=== PATIENT | male | born 1955 | race Caucasian/White ===

== ENCOUNTER 2021-05-20 09:49 | Outpatient (REF) | payer OTHER, SELFPAY ==
[2021-05-20 10:43] LABS: MANUAL DIFF FLAG NO
[2021-05-20 10:47] LABS: Basophils Percent Auto 0.7 % (0-2); Eosinophils Absolute Auto 0.2 X10*3/uL (0.0-0.4); Eosinophils Percent Auto 4.6 % (0-4); Hematocrit 43.7 % (42-52); Hemoglobin 14.7 g/dl (14.0-18.0); Imm Gran Abs Auto 0.01 X10*3/uL (0.00-0.03); Imm Gran Pct Auto 0.2 % (0.0-0.4); Lymphocytes Absolute Auto 1.4 X10*3/uL (1.2-4.9); Lymphocytes Percent Auto 32.9 % (20-40); Mean Corpuscular HGB Conc 33.6 g/dl (31.0-36.0); Mean Corpuscular Volume 95.2 fL (80-98); Mean Platelet Volume 9.9 fL (9.4-12.4); Monocytes Absolute Auto 0.4 X10*3/uL (0.1-1.2); Monocytes Percent Auto 8.5 % (2-11); Neutrophils Absolute Auto 2.2 X10*3/uL (2.0-8.3); Neutrophils Percent Auto 53.1 % (45-73); Platelet Count 225 X10*3/uL (160-400); Red Blood Count 4.59 X10*6/uL (4.60-5.80); Red Cell Distribution Width 12.1 % (11.0-16.0); White Blood Count 4.1 X10*3/uL (4.8-10.8)
[2021-05-20 11:08] LABS: Alanine Aminotransferase 21 U/L (0-40); Albumin Level 4.5 g/dL (3.5-5.0); Alkaline Phosphatase 75 U/L (39-117); Anion Gap 12 (12-20); Aspartate Amino Transferase 26 U/L (5-37); Bilirubin Total 0.6 mg/dL (0.0-1.0); Blood Urea Nitrogen 18 mg/dL (9-16); Calcium 9.5 mg/dL (8.4-10.2); Carbon Dioxide 28 mmol/L (22-29); Chloride 104 mmol/L (96-108); Cholesterol 199 mg/dL; Estimated Glomerular Filt Rate 55; Glucose Fasting 99 mg/dL (60-99); HDL Cholesterol 46 mg/dL; LDL Cholesterol Calculated 128 mg/dl; Potassium 4.8 mmol/L (3.3-5.1); Sodium 139 mmol/L (135-145); Total Protein 7.6 g/dL (6.5-8.0); Triglycerides 127 mg/dL
[2021-05-20 11:30] LABS: Prostate Specific Antigen 0.36 ng/mL (<0.05-4.0)
== END 2021-05-20 09:50 | disposition home or self-care (01) ==
LOC: HO.LAB 09:49
PROVIDERS: PCP Internal Medicine; Visit Provider Internal Medicine
DX: Z00.00 Encounter for general adult medical examination without abnormal findings (principal); Z12.5 Encounter for screening for malignant neoplasm of prostate; N40.0 Benign prostatic hyperplasia without lower urinary tract symptoms; R21 Rash and other nonspecific skin eruption; R50.9 Fever, unspecified
CPT/HCPCS: 36415; 80053; 80061; 84153; 85025

== ENCOUNTER → 2022-05-30 10:06 | Outpatient (BNVA) | payer MEDICARE, SELFPAY | PROVIDERS: PCP Internal Medicine; Visit Provider Urology | DX: N52.9 Male erectile dysfunction, unspecified (principal) | CPT/HCPCS: 99202 ==

== ENCOUNTER 2024-02-06 10:43 | Outpatient (REF) | payer MEDICARE, SELFPAY ==
[2024-02-06 11:01] LABS: MANUAL DIFF FLAG NO
[2024-02-06 11:16] LABS: Basophils Percent Auto 0.7 % (0-2); Eosinophils Absolute Auto 0.1 X10*3/uL (0.0-0.4); Hemoglobin 14.7 g/dl (14.0-18.0); Imm Gran Abs Auto 0.01 X10*3/uL (0.00-0.03); Imm Gran Pct Auto 0.2 % (0.0-0.4); Lymphocytes Absolute Auto 1.4 X10*3/uL (1.2-4.9); Lymphocytes Percent Auto 32.6 % (20-40); Mean Corpuscular Hemoglobin 33.2 pg (27.0-33.0); Mean Corpuscular Volume 94.8 fL (80.0-98.0); Mean Platelet Volume 9.2 fL (9.4-12.4); Monocytes Absolute Auto 0.4 X10*3/uL (0.1-1.2); Monocytes Percent Auto 9.9 % (2-11); Neutrophils Absolute Auto 2.3 x10*3/uL (2.0-8.3); Neutrophils Percent Auto 53.6 % (45-73); Platelet Count 201 X10*3/uL (160-400); Red Blood Count 4.43 X10*6/uL (4.60-5.80); Red Cell Distribution Width 12.3 % (11.0-16.0); White Blood Count 4.4 X10*3/uL (4.8-10.8)
[2024-02-06 11:46] LABS: Alanine Aminotransferase 20 U/L (0-40); Albumin Level 4.4 g/dL (3.5-5.0); Alkaline Phosphatase 68 U/L (39-117); Anion Gap 9 (12-20); Aspartate Amino Transferase 20 U/L (5-37); Bilirubin Total 0.4 mg/dL (0.0-1.0); Blood Urea Nitrogen 17 mg/dL (9-16); Calcium 9.4 mg/dL (8.4-10.2); Carbon Dioxide 30 mmol/L (22-29); Chloride 105 mmol/L (96-108); Cholesterol 208 mg/dL (<200); Estimated Glomerular Filt Rate 57; Glucose Fasting 107 mg/dL (60-99); HDL Cholesterol 42 mg/dL (>40); LDL Cholesterol Calculated 128 mg/dL (<100); Potassium 4.6 mmol/L (3.3-5.1); Sodium 139 mmol/L (135-145); Total Protein 7.8 g/dL (6.5-8.0); Triglycerides 194 mg/dL (<150)
[2024-02-06 11:58] LABS: Prostate Specific Antigen 0.94 ng/mL (<0.05-4.0)
== END 2024-02-06 10:44 | disposition home or self-care (01) ==
LOC: HO.LAB 10:43
PROVIDERS: PCP Internal Medicine; Visit Provider Internal Medicine
DX: N40.0 Benign prostatic hyperplasia without lower urinary tract symptoms (principal); I45.10 Unspecified right bundle-branch block; Z12.5 Encounter for screening for malignant neoplasm of prostate
CPT/HCPCS: 36415; 80053; 80061; 84153; 85025

== ENCOUNTER 2024-08-07 02:18 | Emergency (ER) | payer MEDICARE, SELFPAY ==
[2024-08-07] VITALS (10 sets, daily range): BP systolic 130–171; BP diastolic 73–98; PULSE 61–94; RESP 12–18; TEMP 33.4–36.4; O2SAT 92–97; BMI 31.2
--- NOTE | 2024-08-07 | ECG_ITS ---
Test Reason : ETOH Blood Pressure : / mmHG Vent. Rate : 066 BPM Atrial Rate : 066 BPM P-R Int : 150 ms QRS Dur : 154 ms QT Int : 476 ms P-R-T Axes : 081 012 032 degrees QTc Int : 499 ms Artifact in tracing Normal sinus rhythm Right bundle branch block Abnormal ECG No previous ECGs available Referred By: Naun Ferguson Electronically Signed By:JORGE GRATN
--- NOTE | 2024-08-07 02:37 | ED.PSYCH ---
HPI - Psych General Chief Complaint: ETOH/Substance Use Stated Complaint: ETOH+, SI, HI Time Seen by Provider: 08/07/24 02:36 Source: patient Mode of arrival: EMS Limitations: other (Alcohol intoxication) History of Present Illness ED Provider: Dr. Naun Ferguson HPI Narrative: 68-year-old male with a history of hypertension and depression who presents emergency department for evaluation of alcohol intoxication, depression and suicidal ideation. The patient states that his 4 months ago and since that time he has been very sad and depressed. He states that he has a history depression but does not take any medications. He states that he drinks alcohol once a month. He states that he was feeling very sad last night so he decided to drank gin. He states that he drank a quarter of a bottle of gin. Patient states he lives with his sister. According to the paramedics , his sister found the patient in their backyard about 2 hours prior to the patient coming to the emergency department. Patient was combative and refused to get up. The patient's sister called 911. Patient made the following suicidal statements to the paramedics: ?I want to .? and ?What is the point of living??. The patient told me ?I do not care if I live anymore?. Patient does not have a plan to hurt himself. He denies any attempts to injure himself in the past. He denied drug use. Related Data Previous Rx's ?Medication ?Instructions ?Recorded paroxetine HCl 20 mg tablet (Paxil) 20 mg PO DAILY 90 days #90 tabs 08/07/24 Allergies Allergy/AdvReac Type Severity Reaction Status Date / Time No Known Allergies Allergy Verified 08/07/24 02:40 [No Known Allergies*] Review of Systems Review of Systems: Yes all other systems are reviewed and are negative [facility] Past Medical History [facility] Narrative: Social history: He lives with a sister. He denies tobacco use. He states he drinks alcohol once a month. He denies drug use. Social History Social History Smoked in Last 30 Days: No Use of substances other than those prescribed or required for medical reasons: No Physical Exam Vital Signs: Vital Signs: Last Vital Signs Temp 97.0 F 08/07/24 07:50 Pulse 86 10/18/24 07:21 Resp 18 08/07/24 07:21 BP 150/89 H 08/07/24 07:21 Pulse Ox 97 08/07/24 07:21 O2 Del Method Room Air 08/07/24 07:21 BMI result Body Mass Index 31.2 Exam: General: Awake, appears intoxicated, patient appears sad and is crying. He has a strong odor of alcohol on his breath Head: Normocephalic, atraumatic EENT: PERRL, Lids normal, sclera normal, conjunctiva normal, nose normal , ears normal, throat without erythema or exudates Neck: Supple, no adenopathy Lung: breath sounds symmetric, no wheezing, rales or rhonchi Chest: symmetric movement, nontender Heart: regular rate and rhythm, normal S1, S2 no murmurs or rubs Abdomen: soft, non-tender, nondistended, normal bowel sounds Back: no vertebral tenderness, no CVAT Extremities: no deformities, moves all extremities symmetrically Neuro: Awake, alert, oriented, normal speech, cranial nerves intact, moves all extremities symmetrically Medications Administered Discontinued Medications Generic Name Dose Route Start Last Admin Trade Name Freq PRN Reason Stop Dose Admin Ondansetron HCl 4 mg 08/07/24 02:50 08/07/24 03:28 Ondansetron Odt 4 Mg Tab.Rapdis TRANSLINGU 08/07/24 02:51 Not Given ONCE STA Medical Decision Making Medical Decision Making [facility] Narrative: 68-year-old male with a history of hypertension and depression who presents emergency department for evaluation of alcohol intoxication, depression and suicidal ideation. Patient's 4 months prior and since that time he has been sad. Patient did drink a quarter bottle of gin prior to coming to the emergency department. Patient made suicidal statements to the paramedics and to me. Patient does not have a plan to injure himself. Physical examination was consistent with acute alcohol intoxication Differential diagnosis: ?Includes but is not limited to depression, suicidal ideation, alcohol intoxication, anemia, electrolyte abnormalities Following evaluation was ordered: CBC, CMP, drug screen urine, ethanol level, lipase, magnesium, COVID-19, influenza, RSV Patient was initially treated with the following: Zofran 4 mg ODT Course: 08:14 My interpretation of the patient's laboratory evaluation is as follows: CBC was normal. Glucose was elevated 118. AST elevated 118, LFTs otherwise unremarkable. Urinalysis was negative. Urine tox screen was negative. Ethanol level elevated 172. COVID-19, influenza and RSV were negative. The patient was hypotensive most likely secondary to exposure and was placed on a Philomena Hugger and his temperature was not corrected. The patient is awake and alert and does not appear to be intoxicated. He was able to recount the events of last evening and this morning. He told me that he has been depressed on and off for a long period of time and that since his he has been more depressed. At this time he states that he is not suicidal or homicidal and that he feels safe to go home. He states that he has been on Paxil in the past and this has helped him therefore I restarted him on Paxil 20 mg once a day and gave him a 90 day supply. Patient will also be referred to [facility] and back to his PCP Dr. Jones for re-evaluation. He was given printed and verbal instructions and discharged home. Lab Data 08/07/24 03:11 08/07/24 03:11 Labs: Lab Results 08/07/24 08/07/24 08/07/24 Range/Units 03:11 07:37 07:41 WBC 8.8 (4.8-10.8) X10*3/uL RBC 4.57 L (4.60-5.80) X10*6/uL Hgb 15.4 (14.0-18.0) g/dl Hct 43.7 (42.0-52.0) % MCV 95.6 (80.0-98.0) fL MCH 33.7 H (27.0-33.0) pg MCHC 35.2 (31.0-36.0) g/dl RDW 12.4 (11.0-16.0) % Plt Count 198 (160-400) X10*3/uL MPV 9.2 L (9.4-12.4) fL Immature Gran % (Auto) 0.8 H (0.0-0.4) % Neut % (Auto) 77.8 H (45-73) % Lymph % (Auto) 15.2 L (20-40) % [facility] % (Auto) 4.6 (2-11) % Eos % (Auto) 1.1 (0-4) % Baso % (Auto) 0.5 (0-2) % Lymph # (Auto) 1.3 (1.2-4.9) X10*3/uL [facility] # (Auto) 0.4 (0.1-1.2) X10*3/uL Eos # (Auto) 0.1 (0.0-0.4) X10*3/uL Baso # (Auto) 0.0 (0.0-0.2) X10*3/uL Abs Immat Gran (auto) 0.07 H (0.00-0.03) X10*3/uL Absolute Neuts (auto) 6.9 (2.0-8.3) x10*3/uL Absolute Nucleated RBC 0.000 (0.0-0.012) X10*3/uL Nucleated RBC % (auto) 0.0 (0.0-0.2) /100WBC Sodium 143 (135-145) mmol/L Potassium 5.1 (3.3-5.1) mmol/L Chloride 105 (96-108) mmol/L Carbon Dioxide 26 (22-29) mmol/L Anion Gap 17 (12-20) BUN 17 H (9-16) mg/dL Creatinine 1.19 (0.5-1.4) mg/dL Estim Creat Clear Calc 75.2 Estimated GFR > 60 Random Glucose 118 H (60-115) mg/dL Calcium 9.7 (8.4-10.2) mg/dL Magnesium 2.2 (1.6-2.6) mg/dL Total Bilirubin 0.3 (0.0-1.0) mg/dL AST 34 (5-37) U/L ALT 48 H (0-40) U/L Alkaline Phosphatase 87 (39-117) U/L Total Protein 8.4 H (6.5-8.0) g/dL Albumin 4.8 (3.5-5.0) g/dL Lipase 40 (8-78) U/L Urine Color Yellow Urine Appearance Clear Urine pH 5.5 (5.0-9.0) Ur Specific [place] 1.015 (1.005-1.025) Urine Protein 30 (1+) H (Neg-Trace) mg/dL Urine Glucose (UA) Negative (Negative) mg/dL Urine Ketones Negative (Negative) mg/dL Urine Blood Negative (Negative) Urine Nitrite Negative (Negative) Ur Leukocyte Esterase Negative (Negative) Urine RBC 0-2 (0-2) /HPF Urine WBC 0-5 (0-5) /HPF Ur Squamous Epith Cells 0-2 (0-2) /HPF Urine Bacteria None Seen (None Seen) Hyaline Casts 3-5 (0-2) /LPF Urine Opiates Screen Not Detected (Not Detect) Ur Buprenorphine Scrn Not Detected (Not Detect) ng/mL Ur Oxycodone Screen Not Detected (Not Detect) ng/mL Urine Methadone Screen Not Detected (Not Detect) ng/mL Urine Fentanyl Screen Not Detected (Not Detect) Ur Barbiturates Screen Not Detected (Not Detect) Ur Phencyclidine Scrn Not Detected (Not Detect) Ur Amphetamines Screen Not Detected (Not Detect) U Benzodiazepines Scrn Not Detected (Not Detect) Urine Cocaine Screen Not Detected (Not Detect) U Marijuana (THC) Screen Not Detected (Not Detect) Ethyl Alcohol 172 mg/dL Influenza Type A (PCR) NEGATIVE (Negative) Influenza Type B (PCR) NEGATIVE (Negative) RSV RNA Qual (PCR) NEGATIVE (Negative) SARS-CoV-2 RNA (RT-PCR) NEGATIVE (Negative) Critical Care Time Critical Care Time Critical Care Time: Yes Total Critical Care Time: 45 Attestation: Critical Care: The patient was critically ill with a high probability of imminent or life threatening deterioration. I spent greater than 30 minutes of discontinuous time evaluating the patient,delivering critical care at the bedside, discussing and evaluating pertinent data with consultants. Critical care time does not include time spent performing separately billable procedures or teaching. Total time spent performing critical care was 45 minutes. Discharge Plan Discharge Clinical Impression: Alcohol intoxication, Depression, Suicidal ideation Patient Disposition: Home, Self-Care Instructions: Depression (ED), Alcohol Use Disorder (ED) Additional Instructions: Your blood alcohol level was elevated at 172, the legal level of intoxication is 80. Your blood work was otherwise unremarkable. At this time, I believe that your suicidal statements were related to being intoxicated and you told me that you feel safe going home and that you will not hurt yourself. If you start to feel suicidal again in you start to feel like you are going to hurt yourself call 911 and come back to the emergency department and we can help you. I am restarting you on Paxil 20 mg pills, take 1 pill daily. It will take 2-6 weeks before this medication helps improve your depression. You may also need to be on a higher dose so it is important that you make a follow-up appointment with Dr. Jones to be re-evaluated. I want you to contact the crisis Counseling Service [facility] on [address] in [place] to get follow-up help with your depression their phone number is . Follow-up with your doctor in 2 days. Please return to the emergency department if your symptoms get worse or if you develop any symptoms that are concerning to you. Prescriptions: New paroxetine HCl [Paxil] 20 mg tablet 20 mg PO DAILY 90 Days Qty: 90 0RF Print Language: [place]se
[2024-08-07 03:16] LABS: MANUAL DIFF FLAG NO
[2024-08-07 03:17] LABS: Basophils Percent Auto 0.5 % (0-2); Eosinophils Absolute Auto 0.1 X10*3/uL (0.0-0.4); Eosinophils Percent Auto 1.1 % (0-4); Hematocrit 43.7 % (42.0-52.0); Hemoglobin 15.4 g/dl (14.0-18.0); Imm Gran Abs Auto 0.07 X10*3/uL (0.00-0.03); Imm Gran Pct Auto 0.8 % (0.0-0.4); Lymphocytes Absolute Auto 1.3 X10*3/uL (1.2-4.9); Lymphocytes Percent Auto 15.2 % (20-40); Mean Corpuscular HGB Conc 35.2 g/dl (31.0-36.0); Mean Corpuscular Hemoglobin 33.7 pg (27.0-33.0); Mean Corpuscular Volume 95.6 fL (80.0-98.0); Mean Platelet Volume 9.2 fL (9.4-12.4); Monocytes Absolute Auto 0.4 X10*3/uL (0.1-1.2); Monocytes Percent Auto 4.6 % (2-11); Neutrophils Absolute Auto 6.9 x10*3/uL (2.0-8.3); Neutrophils Percent Auto 77.8 % (45-73); Platelet Count 198 X10*3/uL (160-400); Red Blood Count 4.57 X10*6/uL (4.60-5.80); Red Cell Distribution Width 12.4 % (11.0-16.0); White Blood Count 8.8 X10*3/uL (4.8-10.8)
--- NOTE | 2024-08-07 03:28 | PC.NURSE ---
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 zofran held at this time.
[2024-08-07 03:31] LABS: Alanine Aminotransferase 48 U/L (0-40); Albumin Level 4.8 g/dL (3.5-5.0); Alkaline Phosphatase 87 U/L (39-117); Anion Gap 17 (12-20); Aspartate Amino Transferase 34 U/L (5-37); Bilirubin Total 0.3 mg/dL (0.0-1.0); Blood Urea Nitrogen 17 mg/dL (9-16); Calcium 9.7 mg/dL (8.4-10.2); Carbon Dioxide 26 mmol/L (22-29); Chloride 105 mmol/L (96-108); Creatinine Clr Calc Pharmacy 75.2; Estimated Glomerular Filt Rate > 60; Ethanol 172 mg/dL; Glucose Random 118 mg/dL (60-115); Lipase 40 U/L (8-78); Magnesium 2.2 mg/dL (1.6-2.6); Potassium 5.1 mmol/L (3.3-5.1); Sodium 143 mmol/L (135-145); Total Protein 8.4 g/dL (6.5-8.0)
[2024-08-07 03:55] LABS: Influenza A PCR NEGATIVE (Negative); Influenza B PCR NEGATIVE (Negative); Resp Syncy Virus RNA Qual PCR NEGATIVE (Negative); SARS COV2 PCR INHOUSE NEGATIVE (Negative)
--- NOTE | 2024-08-07 04:12 | PC.NURSE ---
at time of triage unable to obtain oral temp as pt talking then vomiting. upon reattempt read as 94.2F. pt agreed to rectal temp, 92.2F. MD Ferguson made aware, bear hugger on pt per MD verbal order. pt moved from [id number] to ed8 and placed on continuous cardiac, o2 and bp monitoring. on monitor appeared to be in bundle branch block, made aware and ekg ordered. iv established to L. hand. pt is more cooperative and engaging in conversation now. denies si at this time states it was all just stupid. pt tearful when speaking of who passed. pt verbalizes being comfortable at this time denies cp/sob/n/v. ciwa 0. 1:1 sitter at bedside.
--- NOTE | 2024-08-07 07:47 | PC.NURSE ---
pt is alert and oriented, skin pwd, respirations even and unlabored, pt denies si at this time, states feeling sad and depressed because his in January- so the pt self medicated with alcohol last night, but typically is not a heavy drinker, pt is tearful when speaking about his but calm. took the bear hugger off current temp at 97.0 rectal, pt is eating his breakfast and sitter at bedside
[2024-08-07 07:51] LABS: Appearance Urine Clear; Color Urine Yellow; Glucose Urine UA Negative (Negative); Leukocyte Esterase Urine Negative (Negative); Nitrite Urine Negative (Negative); PH 5.5 (5.0-9.0); Specific Gravity - Urine 1.015 (1.005-1.025); UMIC TRIGGER UACC YES; Urine Blood Negative (Negative); Urine Ketones Negative (Negative); Urine Protein 30 (1+) mg/dL (Neg-Trace)
[2024-08-07 07:53] LABS: Bacteria Urine None Seen (None Seen); RBC Urine 0-2 /HPF (0-2); Squamous Epithelial Cell Urine 0-2 /HPF (0-2); WBC Urine 0-5 /HPF (0-5)
[2024-08-07 08:10] LABS: Amphetamine Screen Urine Not Detected (Not Detect); Barbiturates, Urine Not Detected (Not Detect); Benzodiazepines Screen Urine Not Detected (Not Detect); Buprenorphine Scr Not Detected (Not Detect); Cannabinoid Screen Urine Not Detected (Not Detect); Cocaine Screen Urine Not Detected (Not Detect); Fentanyl, urine Not Detected (Not Detect); Methadone Screen, Urine Not Detected (Not Detect); Opiate Screen Urine Not Detected (Not Detect); Oxycodone Screen Urine Not Detected (Not Detect); Phencyclidine Screen Urine Not Detected (Not Detect)
== END 2024-08-07 09:10 | disposition home or self-care (01) ==
PROVIDERS: Emergency Provider Emergency Medicine Emergency Medical Services; PCP Internal Medicine
DX: F10.129 Alcohol abuse with intoxication, unspecified (principal); R45.851 Suicidal ideations; F32.A Depression, unspecified; Z03.818 Encounter for observation for suspected exposure to other biological agents ruled out; Z79.899 Other long term (current) drug therapy
CPT/HCPCS: 0241U; 36415; 80053; 80307; 81001; 83690; 83735; 85025; 93005; 99284; 99285

== ENCOUNTER → 2024-08-07 03:51 | Outpatient (BNV) | payer MEDICARE, SELFPAY | PROVIDERS: Emergency Provider Emergency Medicine Emergency Medical Services; PCP Internal Medicine; Visit Provider Internal Medicine | DX: I45.10 Unspecified right bundle-branch block (principal); R94.31 Abnormal electrocardiogram [ECG] [EKG] | CPT/HCPCS: 93010 ==

== ENCOUNTER 2024-08-25 14:49 | Outpatient (REF) | payer MEDICARE, SELFPAY ==
[2024-08-25 16:01] LABS: Estimated Average Glucose 111 mg/dL; Hemoglobin A1C 135.4402 umol/L; Hemoglobin A1c % 5.5 % (<6.0); Total Hemoglobin (HGBA1C) 3667.4155 umol/L
[2024-08-25 16:25] LABS: Albumin Level 4.3 g/dL (3.5-5.0); Alkaline Phosphatase 72 U/L (39-117); Anion Gap 12 (12-20); Aspartate Amino Transferase 29 U/L (5-37); Bilirubin Total 0.4 mg/dL (0.0-1.0); Blood Urea Nitrogen 16 mg/dL (9-16); Calcium 9.6 mg/dL (8.4-10.2); Carbon Dioxide 27 mmol/L (22-29); Chloride 103 mmol/L (96-108); Estimated Glomerular Filt Rate > 60; Glucose Random 86 mg/dL (60-115); Potassium 4.5 mmol/L (3.3-5.1); Sodium 137 mmol/L (135-145); Total Protein 7.6 g/dL (6.5-8.0)
[2024-08-25 16:35] LABS: Alanine Aminotransferase 30 U/L (0-40)
== END 2024-08-25 14:50 | disposition home or self-care (01) ==
LOC: HO.LAB 14:49
PROVIDERS: PCP Internal Medicine; Visit Provider Internal Medicine
DX: R73.03 Prediabetes (principal); N18.9 Chronic kidney disease, unspecified
CPT/HCPCS: 36415; 80053; 83036

== ENCOUNTER 2025-01-01 14:51 | Outpatient (AMB) | payer MEDICARE, SELFPAY ==
--- NOTE | 2025-01-01 14:58 | A.OFFPC_ITS ---
Vital Signs 01/01/25 15:00 Height 6 ft 0.83 in Weight 223 lb BMI 29.6 BP 138/78 Respiration 16 Pulse 96 Pulse Source Pulse Oximeter Temp 97.7 F Pulse Oximetry (%) 97 Oxygen Delivery Method Room Air Intake Visit Reasons: Routine Newsagent Required: No Accompanied by: Self / Same As Patient Allergies No Known Allergies [No Known Allergies*] Allergy (Verified 01/01/25 14:59) Tobacco use date assessed: 01/01/25 Fall risk assessment: 1 Fall in past year Last assessed Fall Risk: 01/01/25 Dental Screening Dental Screen Date: 01/01/25 Did you have a dental visit in the last 12 months?: No Did you have a dental problem in the last 6 months where you did not have access to dental care?: No HPI HPI Comments History of Present Illness Details 69 year old male with a past medical his tory of mild recurrent depression, grief, presenting for follow up. Last saw PCP in Nov Feels slightly increased depressive symptoms. His last year and does feel some improvement in grief. Has been on paxil in the past. Worked fa irly well but just stopped refilling it at some point. The ED associated with the medication was frustrating. He would like a referral to psychology BP borderline. Today at 138/78. Denies chest pain, shortness of breath Upcoming colonoscopy ROS CONSTITUTIONAL: Denies weight loss, fever and chills. HEENT: Denies changes in vision and hearing. RESPIRATORY: Denies SOB and cough. CV: Denies palpitations and CP GI: Denies abdominal pain, nausea, vomiting and diarrhea. : Denies dysuria and urinary frequency. MSK: Denies new myalgia and joint pain. SKIN: Denies rash and pruritus. NEUROLOGICAL: Denies headache PSYCHIATRIC: see HPI PHYSICAL EXAM: GENERAL: Alert and oriented x 3. NAD EYES: EOMI. Anicteric. HENT: Moist mucous membranes. No scleral icterus. No cervical lymphadenopathy. LUNGS: Clear to auscultation bilaterally. CARDIOVASCULAR: Regular rate and rhythm. No murmur. No JVD. ABDOMEN: Soft, non-tender +bs EXTREMITIES: No edema. Non-tender. SKIN: No rashes or lesions. Warm. NEUROLOGIC: No focal neurological deficits. CN II-XII grossly intact PSYCHIATRIC: Cooperative. Appropriate mood and affect PFSH Family History Father Heart problem Mother Melanoma Obese Dementia Social History Housing: House Alcohol intake: current Alcohol intake frequency: a few times a month Alcohol type: hard liquor Patient Tobacco Use Status: Never used Tobacco service: No Current occupational status: retired Cognitive needs: No Hearing needs: No Vision needs: Yes (rx glasses) Questionnaire PHQ-9 Over the last 2 weeks, how often have you been bothered by any of the following problems? 1. Little interest or pleasure in doing things: nearly every day 2. Feeling down, depressed, or hopeless: more than half the days 3. Trouble falling or staying asleep, or sleeping too much: nearly every day 4. Feeling tired or having little energy: nearly every day 5. Poor appetite or overeating: not at all 6. Feeling bad about yourself - or that you are a failure or have let yourself or your family down: several days 7. Trouble concentrating on things, such as reading the newspaper or watching television: not at all 8. Moving or speaking so slowly that other people could have noticed. Or the opposite - being so fidgety or restless that you have been moving around a lot more than usual: not at all 9. Thoughts that you would be better off or of hurting yourself in some way: not at all Total score: 12 Depression Screening Interpretation: Positive Depression Screening Follow-up: Existing condition, New Medication prescribed and Follow-up Visit Requested Depression Screening Done: Yes 74609 - PHQ-9 Billing: Yes Source: Developed by Drs. Santino Williamson, Jessi Carmona, Eduardo Haney and colleagues, with an educational can from [employer]. Thrive Questionnaire Date Thrive assessed: 01/01/25 I am a: Patient What is your living situation today?: I have a steady place to live Within the past 12 months, did the food you bought not last and you didn't have the money to get more?: Never true Within the past 12 months, did you worry whether your food would run out before you got money to buy more?: Never true Do you have trouble paying for medicines?: No Do you have trouble getting transportation to medical appointments?: No Do you have trouble paying your heating and electricity bill?: No Do you have trouble taking care of your child, family member or friend?: No Do you have trouble with day-to-day activities such as bathing, preparing meals, shopping, managing finances, etc.?: No Are you currently unemployed and looking for a job?: No Are you interested in more education?: No THRIVE Score: 0 AUDIT C Alcohol Use Questionnaire (AUDIT-C) 1. How often do you have a drink containing alcohol?: Monthly or less 2. How many drinks containing alcohol do you have on a typical day when you are drinking?: 1 or 2 3. How often do you have six or more drinks on one occasion?: Never Total Score: 1 JORJE-7 AMB Questionnaire JORJE-7 Date JORJE - 7 assessed: 01/01/25 Feeling nervous, anxious, or on edge: 0 = Not at all Not being able to stop or control worryin = Not at all Worrying too much about different things: 0 = Not at all Trouble relaxin = Not at all Being so restless that it is hard to sit still: 0 = Not at all Becoming easily annoyed or irritable: 0 = Not at all Feeling afraid as if something awful might happen: 0 = Not at all Total JORJE-7 score (0-4 normal; 5-9 mild; 10-14 moderate; 15-21 severe): 0 Source: Developed by Drs. Santino Williamson, Jessi Carmona, Eduardo Haney and colleagues, with an educational can from [employer]. Physical exam (Primary Care) Vital Signs: Last Vital Signs Temp 97.7 F 01/01/25 15:00 Pulse 96 01/01/25 15:00 Resp 16 01/01/25 15:00 BP 138/78 01/01/25 15:00 Pulse Ox 97 01/01/25 15:00 Oxygen Delivery Method Room Air 01/01/25 15:00 BMI result Body Mass Index 29.6 Tobacco/Smoking Status: Tobacco use Status Tobacco use date assessed 01/01/25 01/01/25 15:10 Patient Tobacco Use Status Never used Tobacco 01/01/25 15:10 PHQ-9: PHQ-9 Score PHQ-9: Total score 12 01/01/25 15:10 Depression Screening Interpretation: Positive Depression Screening Follow-up: Existing condition, New Medication prescribed and Follow-up Visit Requested Thrive Assessment: Date of Thrive Assessment Date Thrive assessed 01/01/25 01/01/25 15:10 Coding Level of Care Code Est Pt Level 4 (51087) Complex EM visit Add On G2211 Diagnoses Major depressive disorder, recurrent episode, in partial remission F33.41 Additional Codes PHQ-9 - 12858 - PHQ-9 Billing: Yes ([id number]) Assessment & Plan Assessment & Plan (1) Major depressive disorder, recurrent episode, in partial remission: Code(s): F33.41 - Major depressive disorder, recurrent, in partial remission Category: Medical Plan: Start wellbutrin 150mg x 2 weeks then increase to 300mg daily Discussed method of action, possible SE Referral placed to psychology. Will follow up in 4 weeks Orders: Orders Complete Blood Count Auto Diff 5 Months F3.41 - Major depressive disorder, recurrent, in partial remission, Z13.0 - Encounter for screening for diseases of the blood and blood-forming organs and certain disorders involving the immune mechanism, Z13.220 - Encounter for screening for lipoid disorders, Z13.228 - Encounter for screening for other metabolic disorders Comprehensive Met. Panel 5 Months F3.41 - Major depressive disorder, recurrent, in partial remission, Z13.0 - Encounter for screening for diseases of the blood and blood-forming organs and certain disorders involving the immune mechanism, Z13.220 - Encounter for screening for lipoid disorders, Z13.228 - Encounter for screening for other metabolic disorders Vitamin B12 and Folate 5 Months F33.41 - Major depressive disorder, recurrent, in partial remission, Z13.0 - Encounter for screening for diseases of the blood and blood-forming organs and certain disorders involving the immune mechanism, Z13.220 - Encounter for screening for lipoid disorders, Z13.228 - Encounter for screening for other metabolic disorders Lipid Panel 5 Months F33.41 - Major depressive disorder, recurrent, in partial remission, Z13.0 - Encounter for screening for diseases of the blood and blood- forming organs and certain disorders involving the immune mechanism, Z13.220 - Encounter for screening for lipoid disorders, Z13.228 - Encounter for screening for other metabolic disorders Prostate Specific Antigen 5 Months F33.41 - Major depressive disorder, recurrent, in partial remission, Z13.0 - Encounter for screening for diseases of the blood and blood-forming organs and certain disorders involving the immune mechanism, Z13.220 - Encounter for screening for lipoid disorders, Z13.228 - Encounter for screening for other metabolic disorders Hemoglobin A1c 5 Months F33.41 - Major depressive disorder, recurrent, in partial remission, Z13.0 - Encounter for screening for diseases of the blood and blood-forming organs and certain disorders involving the immune mechanism, Z13.220 - Encounter for screening for lipoid disorders, Z13.228 - Encounter for screening for other metabolic disorders Referrals Psychology Referral F32.A - Depression, unspecified, F43.21 - Adjustment disorder with depressed mood Medications: New bupropion HCl XL (Wellbutrin XL) 150 mg PO QAM 14 tabs 0RF bupropion HCl XL 300 mg PO QAM 90 tabs 1RF
[2025-01-01 15:00] VITALS: BP 138/78; PULSE 96; RESP 16; TEMP 36.5; O2SAT 97; BMI 29.6
== END 2025-01-01 15:37 | disposition home or self-care (01) ==
LOC: HO.HMCHD 14:51
PROVIDERS: PCP Internal Medicine; Visit Provider Internal Medicine
DX: F33.41 Major depressive disorder, recurrent, in partial remission (principal)

== ENCOUNTER → 2025-01-01 14:51 | Outpatient (BNVA) | payer MEDICARE, SELFPAY | PROVIDERS: PCP Internal Medicine; Visit Provider Internal Medicine | DX: F33.41 Major depressive disorder, recurrent, in partial remission (principal) | CPT/HCPCS: 96127; 99212 ==

== ENCOUNTER 2025-07-06 10:46 | Outpatient (AMB) | payer MEDICARE, SELFPAY ==
--- OUTSIDE RECORDS SUMMARY | 2025-02-09 05:30 | XMS_ITS ---
Author Organization [facility] Address [address] [place] [address] Care Team Providers Care Direct Service Provider Name Role Phone En-Sarkis (DO NOT USE), Tracy Primary Care Sheriei Aung Vizcarra Jr REASON FOR VISIT screening Encounters Encounter Location Date Provider Diagnosis [facility] [address] [place] [phone] 02/09/2025 Aung Lazaro Jr Plan Of Treatment No Information Progress Notes * RILEY SAENZDOB:08/1956 (69 yo M)Acc No.[id number]:02/09/2025 COLON WITH MAC Patient: RILEY WELCH Provider: Robyn Lazaro MD :[id number] A ge:69 Y S ex:Male Date:02/09/2025 Address:[address] [place], [place] [id number] Pcp:Tracy Philippe (DO NOT USE) Subjective: * [...] 02/09/2025 Generated for Printi ng/Farobyng/eTransmitting on: 0 07/06/2025 02:24 PM EDT
[2025-07-06 08:53] VITALS: BP 128/76; PULSE 96; TEMP 36.4; O2SAT 97; BMI 29.9
--- NOTE | 2025-07-06 08:53 | A.OFFPC_ITS ---
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: No Accompanied by: Self / Same As Patient Allergies No Known Allergies (No Known Allergies*) Allergy (Verified 07/06/25 08:54) Medication List - Last Reconciled 07/06/25 by MARVIN Barger bupropion HCl XL 300 mg PO QAM trazodone 50 mg PO BEDTIME PRN Tobacco use date assessed: 07/06/25 Fall risk assessment: No Falls in past year Last assessed Fall Risk: 07/06/25 Dental Screening Dental Screen Date: 07/06/25 Did you have a dental visit in the last 12 months?: Yes Did you have a dental problem in the last 6 months where you did not have access to dental care?: No HPI HPI Comments History of Present Illness Details The patient is a 69-year-old male presenting for follow up of depression and insomnia. He has a history of chronic low-level depression, previously managed with Paxil, which he found effective but discontinued after running out. He was not happy with the side effects of Paxil. Currently, he is on bupropion 300mg but feels Paxil was more effective despite side effects. The patient experiences insomnia, with frequent awakenings due to his cat and occasional use of Benadryl, which causes next-day drowsiness. He does admit to taking his 's old medications for insomnia on and off. He reports improved mood with physical activity, such as walking his dogs, but admits to insufficient activity. He occasionally consumes alcohol at night as a form of self-medication. He does not drink daily but may have several drinks in a night when he buys a bottle. [facility] Medical History (Updated 07/06/25 @ 11:52 by MARVIN Barger) Insomnia Family History (Updated 07/06/25 @ 11:11 by Katy Hardwick MA) Father Heart problem Mother Melanoma Obese Dementia Brother Substance abuse Mental health disorder Sister Substance abuse Social History Housing: House Alcohol intake: current Alcohol intake frequency: a few times a month Alcohol type: hard liquor Patient Tobacco Use Status: Never used Tobacco e-Cigarette/Vaping Use: Never Used service: No Current occupational status: retired Cognitive needs: No Hearing needs: No Vision needs: Yes (rx glasses) Questionnaire PHQ-9 Over the last 2 weeks, how often have you been bothered by any of the following problems? 1. Little interest or pleasure in doing things: not at all 2. Feeling down, depressed, or hopeless: nearly every day (most of the time) 3. Trouble falling or staying asleep, or sleeping too much: not at all 4. Feeling tired or having little energy: nearly every day 5. Poor appetite or overeating: not at all 6. Feeling bad about yourself - or that you are a failure or have let yourself or your family down: several days (sometimes) 7. Trouble concentrating on things, such as reading the newspaper or watching television: not at all 8. Moving or speaking so slowly that other people could have noticed. Or the opposite - being so fidgety or restless that you have been moving around a lot more than usual: not at all 9. Thoughts that you would be better off or of hurting yourself in some way: not at all Total score: 7 Source: Developed by Drs. Santino Williamson, Jessi Carmona, Eduardo Haney and colleagues, with an educational can from [employer]. Thrive Questionnaire Date Thrive assessed: 07/06/25 I am a: Patient Within the past 12 months, did the food you bought not last and you didn't have the money to get more?: Never true Within the past 12 months, did you worry whether your food would run out before you got money to buy more?: Never true Do you have trouble paying for medicines?: No Do you have trouble getting transportation to medical appointments?: No Do you have trouble paying your heating and electricity bill?: No Do you have trouble taking care of your child, family member or friend?: No Do you have trouble with day-to-day activities such as bathing, preparing meals, shopping, managing finances, etc.?: No Are you currently unemployed and looking for a job?: No Are you interested in more education?: No THRIVE Score: 0 AUDIT C Alcohol Use Questionnaire (AUDIT-C) 1. How often do you have a drink containing alcohol?: Monthly or less 2. How many drinks containing alcohol do you have on a typical day when you are drinking?: 1 or 2 3. How often do you have six or more drinks on one occasion?: Less than monthly Total Score: 2 JORJE-7 AMB Questionnaire JORJE-7 Date JORJE - 7 assessed: 07/06/25 Feeling nervous, anxious, or on edge: 3 = Nearly every day Not being able to stop or control worryin = Not at all Worrying too much about different things: 1 = Several days Trouble relaxin = Not at all Being so restless that it is hard to sit still: 0 = Not at all Becoming easily annoyed or irritable: 0 = Not at all Feeling afraid as if something awful might happen: 0 = Not at all Total JORJE-7 score (0-4 normal; 5-9 mild; 10-14 moderate; 15-21 severe): 4 Source: Developed by Drs. Santino Williamson, Jessi Carmona, Eduardo Haney and colleagues, with an educational can from [employer]. Review of Systems Const Details: CONSTITUTIONAL Negative HEAD/NECK Negative RESPIRATORY Negative CARDIOVASCULAR Negative NEUROLOGICAL Negative PSYCHIATRIC Reports chronic low-level depression insomnia with frequent awakenings Physical exam (Primary Care) Vital Signs: Last Vital Signs Temp 97.5 F 07/06/25 08:53 Pulse 96 07/06/25 08:53 BP 128/76 07/06/25 08:53 Pulse Ox 97 07/06/25 08:53 Oxygen Delivery Method Room Air 07/06/25 08:53 BMI result Body Mass Index 29.9 GENERAL Well developed, overweight, in no apparent distress HEENT Head-Normocephalic Neck- Supple, No lymphadenopathy, thyroid WNL RESPIRATORY Normal I:E, Clear to auscultation CARDIOVASCULAR Regular, rate and rhythm, No murmurs or rubs NEUROLOGICAL Gait normal PSYCHIATRIC Oriented to person, place and time Mood and affect Depression Appearance WNL Speech WNL Thought processes WNL Tobacco/Smoking Status: Tobacco use Status Tobacco use date assessed 07/06/25 07/06/25 08:54 Patient Tobacco Use Status Never used Tobacco 07/06/25 08:54 e-Cigarette/Vaping Use Never Used 07/06/25 08:54 PHQ-9: PHQ-9 Score PHQ-9: Total score 7 07/06/25 11:11 Thrive Assessment: Date of Thrive Assessment Date Thrive assessed 07/06/25 07/06/25 11:11 Coding Level of Care Code Established Pt Est Pt Level 3 (17458) Patient Type Established Diagnoses Major depressive disorder, recurrent episode, in partial remission F33.41 Insomnia G47.00 Time Spent (min) 25 Comment Time spent on chart review, medication reconciliation, H&P, patient education and orders Assessment & Plan Assessment & Plan (1) Major depressive disorder, recurrent episode, in partial remission: Code(s): F33.41 - Major depressive disorder, recurrent, in partial remission Category: Medical Plan: The patient is on bupropion but finds Paxil more effective despite side effects. A therapist referral is planned for additional support. Will monitor for now. Patient to follow up in 8 weeks or sooner if symptoms persist or worsen. (2) Insomnia: Code(s): G47.00 - Insomnia, unspecified Category: Medical Plan: The patient has insomnia with frequent awakenings. Trazodone is recommended to improve sleep and assist with depression. Reviewed good sleep hygiene. Patient to follow up in 8 weeks or sooner if symptoms persist or worsen. Plan I discussed with the patient the importance of managing depression and insomnia effectively. We talked about the potential benefits of adding trazodone to his regimen to aid sleep and enhance depression management. I also emphasized the value of therapy in providing additional support and coping strategies. We will attempt to facilitate a therapist referral, considering insurance constraints. I advised the patient to continue with his current medication and to engage in regular physical activity, which can positively impact mood. Orders: Referrals Psychology Referral F33.41 - Major depressive disorder, recurrent, in partial remission, G47.00 - Insomnia, unspecified Medications: New trazodone 50 mg PO BEDTIME PRN 60 tabs 0RF sleep Patient Instructions: - Continue taking bupropion as prescribed. - Start trazodone at bedtime to help with sleep and depression. - Engage in regular physical activity, such as walking, to improve mood. - Have labs done that were ordered by Dr. Sterling - Follow up in eight weeks to assess progress and review lab results.
--- OUTSIDE RECORDS SUMMARY | 2025-07-06 14:24 | XMS_ITS | Patient Health Record ---
Author Organization [facility] Address [address] [place] [address] Care Team Providers Care Gas Burner Operator Name Role Phone Jose Martin (DO NOT USE), Monie Primary Care Provi nikole Unavailable Aung Lazaro Jr Unavailable [phone] Allergies No Known Allergies Reason For Referral Referring Provider [facility] Name [facility] Referring Provider Last Name Jose Martin ( DO NOT USE) Referred Organization [facility] Referred Provider Aung Lazaro Jr Referred Address [address],[place], [place],[address],[place] Referred Provider Specialty Gastroentero logy General Notes Rachelle Edgar 2024 10:37:39 AM >requested a back dated referral since none on file for dos 01-11-[address] Lazaro. requested from [facility] [phone], Rachelle Edgar 01/20/2025 08:24:14 AM >, Rachelle Edgar 01/20/2025 08:24:16 AM > pt will call rust and find out which insurance is primary medicare or rust, choose a pcp and obtain a back dated referral, Rachelle Edgar 01/26/2025 02:26:22 PM >Sheng is primary insurance. Requested a backdated referral to 01-11-2025 with Tejas Wilkins from Dr. Hodges. and upcoming colon on 02-09-25 . Pt has not seen the provider yet so we may need to r/s the procedure, Rachelle Edgar 01/27/2025 04:26:28 PM >Pt is in the process of chosing a new pcp and being seen before he can obtain an insurance referral Referral Priority Routine Medications Medication SIG (Take, Route, Fr equency, Duration) Notes Start Date End Date Status buPROPion HBr ER 348 MG 1 tablet in the morning Orally Once a day Active Immunizations Vaccine Route Administration Date Status Comme nts Influenza Unknown 08/04/2024 Administered Social History Tobacco Use: Social History Observation Description Date Details (start date - stop date) Never Smoker NA - NA Tobacco Control (Standard) Question Answer Notes Tobacco use: Nonsmoker AUDIT-C (Standard) Question Answer Notes Did you have a drink contain ing alcohol in the past year? Yes How often did you have a dri nk containing alcohol in the past year? Monthly or less (1 point) How many drinks did you have on a typical day when you were drinking in the past year? 1 or 2 drinks (0 point) How often did you have six o r more drinks on one occasion in the past year? Never (0 point) Points 1 Interpretation Negative Problems Problem Type SNOMED Code ICD Code Onset Dates Problem Status W/U Status Risk Notes Problem [id number] Rectal symptom (R19.8) Active confirmed Vital Signs Temperature 97.7 degrees Fahrenheit 01/11/2025 Blood pressure diastolic 01 mm Hg 01/11/2025 Height 71 in 01/11/2025 Blood pressure systolic 001 mm Hg 01/11/2025 Weight 220 lbs 01/11/2025 BMI 30.68 kg/m2 01/11/2025 Encounters Encounter Location Date Provider Diagnosis [facility] [address] [place] [phone] 01/11/2025 Aung Lazaro Jr Colon cancer screening Z12.11 and Rectal symptom R19.8 [facility] [address] [place] [phone] 01/27/2025 Aung Lazaro Jr [facility] [address] [place] [phone] 01/27/2025 Aung Lazaro Jr Assessments Encounter Date Diagnosis (ICD Code) Assessment Notes Treatment Notes Treatment Clinical Notes Section Notes 01/11/2025 Colon cancer screening (ICD-10 - Z12.11) We discussed symptoms of incomplete rectal evaluation today. We recommend that he follow a high-fiber diet and eat plenty of fruits and vegetables. He is overdue for colorectal cancer screening and this will be arranged. He is advised regarding the risks and benefits of the procedure today. He understands these and agrees to proceed. This will be scheduled at his convenience. 01/11/2025 Rectal symptom (ICD-10 - R19.8) We discussed symptoms of incomplete rectal evaluation today. We recommend that he follow a high-fiber diet and eat plenty of fruits and vegetables. He is overdue for colorectal cancer screening and this will be arranged. He is advised regarding the risks and benefits of the procedure today. He understands these and agrees to proceed. This will be scheduled at his convenience. Plan Of Treatment Future Test Test Name Order Date COLONOSCOPY 01/11/2025 Insurance Providers Payer Name Payer Address Payer Phone Subscriber Number Group Number Insured Name Patient Relationship to Insured Coverage Start Date Coverage End Date [facility] [address] [place] [phone] [id number] RILEY SAENZ Self - patient is the insured 3 Medical (General) History Medical History History ICD Code Depression Surgical History Surgery Date(Month/Year) inguinal hernia repair R 1995
== END 2025-07-06 11:49 | disposition home or self-care (01) ==
LOC: HO.HMCHD 10:47
PROVIDERS: PCP Physician Assistant Medical; Visit Provider Physician Assistant Medical
DX: F33.41 Major depressive disorder, recurrent, in partial remission (principal); G47.00 Insomnia, unspecified

== ENCOUNTER → 2025-07-06 10:46 | Outpatient (BNVA) | payer MEDICARE, SELFPAY | PROVIDERS: PCP Internal Medicine; Visit Provider Physician Assistant Medical | DX: F33.41 Major depressive disorder, recurrent, in partial remission (principal); G47.00 Insomnia, unspecified; Z13.39 Encounter for screening examination for other mental health and behavioral disorders; Z13.30 Encounter for screening examination for mental health and behavioral disorders, unspecified | CPT/HCPCS: 96127; 99212 ==

== ENCOUNTER 2025-07-19 16:17 | Outpatient (REF) | payer MEDICARE, SELFPAY ==
--- OUTSIDE RECORDS SUMMARY | 2025-02-09 05:30 | XMS_ITS ---
Author Organization [facility] Address [address] [place] [address] Care Team Providers Care Vocational [employer] Teacher Name Role Phone En-Sarkis (DO NOT USE), Tracy Primary Care Sheriei Aung Vizcarra Jr REASON FOR VISIT screening Encounters Encounter Location Date Provider Diagnosis [facility] Outpatient [address] [place] [phone] 02/09/2025 Aung Lazaro Jr Plan Of Treatment No Information Progress Notes * RILEY SAENZDOB:08/1956 (69 yo M)Acc No.[id number]:02/09/2025 COLON WITH MAC Patient: RILEY WELCH Provider: Robyn Lazaro MD :1955 A ge:69 Y S ex:Male Date:02/09/2025 Address:[address] [place], [place] [id number] Pcp:Tracy Philippe (DO NOT USE) Subjective: * [...] 0 02/09/2025 Generated for Printi ng/Farobyng/eTransmitting on: 0 07/19/2025 06:23 PM EDT
[2025-07-19 16:51] LABS: MANUAL DIFF FLAG NO
[2025-07-19 17:16] LABS: Hematocrit 41.1 % (42.0-52.0); Hemoglobin 14.1 g/dl (14.0-18.0); Imm Gran Abs Auto 0.02 X10*3/uL (0.00-0.03); Imm Gran Pct Auto 0.4 % (0.0-0.4); Lymphocytes Absolute Auto 1.3 X10*3/uL (1.2-4.9); Mean Corpuscular HGB Conc 34.3 g/dl (31.0-36.0); Mean Corpuscular Hemoglobin 32.9 pg (27.0-33.0); Mean Corpuscular Volume 96.0 fL (80.0-98.0); NRBC Abs Auto 0.000 X10*3/uL (0.0-0.012); NRBC Pct Auto 0.0 /100WBC (0.0-0.2); Platelet Count 209 X10*3/uL (160-400); Red Blood Count 4.28 X10*6/uL (4.60-5.80); White Blood Count 4.5 X10*3/uL (4.8-10.8)
[2025-07-19 18:22] LABS: Alanine Aminotransferase 26 U/L (0-40); Albumin Level 4.7 g/dL (3.5-5.0); Alkaline Phosphatase 85 U/L (39-117); Anion Gap 13 (12-20); Aspartate Amino Transferase 43 U/L (5-37); Blood Urea Nitrogen 17 mg/dL (9-16); Calcium 9.3 mg/dL (8.4-10.2); Carbon Dioxide 27 mmol/L (22-29); Chloride 105 mmol/L (96-108); Cholesterol 224 mg/dL (<200); Estimated Glomerular Filt Rate 54; HDL Cholesterol 39 mg/dL (>40); Potassium 4.3 mmol/L (3.3-5.1); Sodium 141 mmol/L (135-145); Total Protein 7.6 g/dL (6.5-8.0); Triglycerides 301 mg/dL (<150)
--- OUTSIDE RECORDS SUMMARY | 2025-07-19 18:23 | XMS_ITS | Patient Health Record ---
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 Name Role Phone Jose Martin (DO NOT USE), Monie Primary Care Provi nikole Unavailable Aung Lazaro Jr Unavailable Allergies No Known Allergies Reason For Referral Referring Provider First Name [facility] Referring Provider Last Name Jose Martin ( DO NOT USE) Referred Organization [facility] Referred Provider Aung Lazaro Jr Referred Address [address],[place], [place],[address],[place] Referred Provider Specialty Gastroentero logy General Notes Rachelle Edgar 2024 10:37:39 AM >requested a back dated referral since none on file for dos 01-11-[address] Lazaro. requested from [facility] [phone], Rachelle Edgar 01/20/2025 08:24:14 AM >, Rachelle Edgar 01/20/2025 08:24:16 AM > pt will call [facility] and find out which insurance is primary medicare or [facility], choose a pcp and obtain a back [...] Problem Status W/U Status Risk Notes Problem [id number] Rectal symptom (R19.8) Active confirmed Vital Signs Temperature 97.7 degrees Fahrenheit 01/11/2025 Blood pressure diastolic 01 mm Hg 01/11/2025 Height 71 in 01/11/2025 Blood pressure systolic 001 mm Hg 01/11/2025 Weight 220 lbs 01/11/2025 BMI 30.68 kg/m2 01/11/2025 Encounters Encounter Location Date Provider Diagnosis [facility] [address] [place] [phone] 01/11/2025 Aung Lazaro Jr Colon cancer screening Z12.11 and Rectal symptom R19.8 [facility] [address] [place] [phone] 01/27/2025 Aung Lazaro Jr [facility] [address] [place] [phone] 01/27/2025 Aung Lazaro Jr Assessments Encounter Date [...] Insured Coverage Start Date Coverage End Date [facility] [address] [place] [phone] [id number] RILEY SAENZ Self - patient is the insured 3 Medical (General) History Medical History History ICD Code Depression Surgical History Surgery Date(Month/Year) inguinal hernia repair R 1995
[2025-07-19 18:54] LABS: Folate 12.1 ng/mL (> or = 4.0); Prostate Specific Antigen 0.54 ng/mL (<0.05-4.0); Vitamin B12 319 pg/mL (200-900)
== END 2025-07-19 16:18 | disposition home or self-care (01) ==
LOC: HO.LAB 16:17
PROVIDERS: Visit Provider Internal Medicine
DX: Z12.5 Encounter for screening for malignant neoplasm of prostate (principal); Z13.0 Encounter for screening for diseases of the blood and blood-forming organs and certain disorders involving the immune mechanism; Z13.228 Encounter for screening for other metabolic disorders; Z13.1 Encounter for screening for diabetes mellitus; Z13.220 Encounter for screening for lipoid disorders; Z13.6 Encounter for screening for cardiovascular disorders; F33.41 Major depressive disorder, recurrent, in partial remission
CPT/HCPCS: 36415; 80053; 80061; 82607; 82746; 83036; 84153; 85025

== ENCOUNTER 2025-08-31 10:50 | Outpatient (AMB) | payer MEDICARE, SELFPAY ==
--- OUTSIDE RECORDS SUMMARY | 2025-02-09 04:30 | XMS_ITS ---
Author Organization [facility] Address [address] [place] [address] Care Team Prov[address] Care Court Abstractor Name Role Phone En-Sarkis (DO NOT USE), Tracy Primary Care Sheriei Aung Vizcarra Jr REASON FOR VISIT screening Encounters Encounter Location Date Provider Diagnosis [facility] Out[facility] [address] [place] [phone] 02/09/2025 Aung Lazaro Jr Plan Of Treatment No Information Progress Notes * RILEY SAENZDOB:08/1956 (69 yo M)Acc No.[id number]:02/09/2025 COLON WITH MAC Patient: RILEY WELCH Provider: Robyn Lazaro MD :1955 A ge:69 Y S ex:Male Date:02/09/2025 Address:[address] [place], [place] [id number] Pcp:Tracy Philippe (DO NOT USE) Subjective: * Chief Complaints: * 1 . Screening. * Medical History: Objective: * Vitals: Assessment: Plan: * Treatment: * * The named appointment provid er may or may not be the originator of this progress note, and it is not deemed complete until electronically signed by the appointment provider. Sign off status: Pending * Provider: Robyn Lazaro MD Date: 0 02/09/2025 Generated for Printi ng/Farobyng/eTransmitting on: 1 10/31/2024 12:58 PM EST
--- NOTE | 2025-08-30 18:03 | MHC.PC.OV ---
Vital Signs 08/31/25 11:18 Height 6 ft 1 in Weight 225 lb BMI 29.7 BP 134/63 Blood Pressure Location Lt brachial Position Sitting Pulse 78 Pulse Source Pulse Oximeter Temp 98 F Temp Source Temporal Artery Scan Pulse Oximetry (%) 94 Oxygen Delivery Method Room Air Intake Visit Reasons: 8 week f/u Loop Tacker Required: No Accompanied by: Self / Same As Patient Allergies No Known Allergies (No Known Allergies*) Allergy (Verified 07/06/25 08:54) Medication List - Last Reconciled 08/31/25 by MARVIN Barger bupropion HCl XL 300 mg PO QAM trazodone 50 mg PO BEDTIME PRN Tobacco use date assessed: 08/31/25 Fall risk assessment: No Falls in past year Last assessed Fall Risk: 08/31/25 Dental Screening Dental Screen Date: 08/31/25 Did you have a dental visit in the last 12 months?: No Did you have a dental problem in the last 6 months where you did not have access to dental care?: No HPI HPI Comments History of Present Illness Details The patient is a 69-year-old male with depression and insomnia presenting for a follow-up. . He continues to take bupropion daily and recently started trazodone for sleep, which has been effective in helping him sleep through the night. He initially experienced morning grogginess with trazodone, but this has since improved. He reports recent difficulty with word-finding, which he is unsure is related to aging, stress, or a medication side effect, and is considering discontinuing the trazodone. His depressive symptoms are reported to be better when he gets out for long walks. He is experiencing significant stress due to a conflict-ridden home situation with his sister, who has a history of alcoholism and an addictive personality. A previous referral to a psychiatrist was not followed through on because the patient is in the process of changing his insurance from [employer] due to network limitations. Recent lab work showed a slightly elevated liver function test, which may be related to his past occasional use of alcohol for sleep. His total cholesterol was elevated at 224 with triglycerides around 300. He acknowledges his diet is not so great due to a lot of junk food in the house and being out of the habit of cooking. He is about 30 pounds overweight and would like to lose weight. For the past few weeks, the patient has had an intermittent, non-productive cough with a whooping sound. He also reports a painful lesion on the middle of his foot, suspected to be a plantar wart. Additionally, he has a 9 to 10-year history of intermittent heel pain, which is worse in the morning, that began after stepping on a clamshell. Medical History: - Depression - Insomnia - History of alcohol use to aid sleep - Remote heel injury from stepping on a clamshell 9-10 years ago Patient was informed and verbally consented to the use of an ambient scribe for clinic note documentation during this visit. FORMERLY [facility], [facility] Medical History (Updated 08/31/25 @ 13:39 by MARVIN Barger) Elevated LFTs Hyperlipidemia Insomnia Pain of left heel Plantar wart of left foot Family History Father Heart problem Mother Melanoma Obese Dementia Brother Substance abuse Mental health disorder Sister Substance abuse Social History Housing: House Alcohol intake: current Alcohol intake frequency: a few times a month Alcohol type: hard liquor Patient Tobacco Use Status: Never used Tobacco e-Cigarette/Vaping Use: Never Used service: No Current occupational status: retired Cognitive needs: No Hearing needs: No Vision needs: Yes (rx glasses) Questionnaire PHQ-9 Over the last 2 weeks, how often have you been bothered by any of the following problems? 1. Little interest or pleasure in doing things: not at all 2. Feeling down, depressed, or hopeless: not at all 3. Trouble falling or staying asleep, or sleeping too much: nearly every day 4. Feeling tired or having little energy: nearly every day 5. Poor appetite or overeating: not at all 6. Feeling bad about yourself - or that you are a failure or have let yourself or your family down: not at all 7. Trouble concentrating on things, such as reading the newspaper or watching television: not at all 8. Moving or speaking so slowly that other people could have noticed. Or the opposite - being so fidgety or restless that you have been moving around a lot more than usual: not at all 9. Thoughts that you would be better off or of hurting yourself in some way: not at all Total score: 6 Depression Screening Interpretation: Positive Depression Screening Follow-up: In treatment and Follow-up Visit Requested Depression Screening Done: Yes Source: Developed by Drs. Santino Williamson, Jessi Carmona, Eduardo Haney and colleagues, with an educational can from [employer]. Thrive Questionnaire Date Thrive assessed: 08/31/25 I am a: Patient Within the past 12 months, did the food you bought not last and you didn't have the money to get more?: Never true Within the past 12 months, did you worry whether your food would run out before you got money to buy more?: Never true Do you have trouble paying for medicines?: No Do you have trouble getting transportation to medical appointments?: No Do you have trouble paying your heating and electricity bill?: No Do you have trouble taking care of your child, family member or friend?: No Do you have trouble with day-to-day activities such as bathing, preparing meals, shopping, managing finances, etc.?: No Are you currently unemployed and looking for a job?: No Are you interested in more education?: No THRIVE Score: 0 AUDIT C Alcohol Use Questionnaire (AUDIT-C) 1. How often do you have a drink containing alcohol?: Monthly or less 2. How many drinks containing alcohol do you have on a typical day when you are drinking?: 1 or 2 3. How often do you have six or more drinks on one occasion?: Less than monthly Total Score: 2 JORJE-7 AMB Questionnaire JOREJ-7 Date JORJE - 7 assessed: 08/31/25 Feeling nervous, anxious, or on edge: 0 = Not at all Not being able to stop or control worryin = Not at all Worrying too much about different things: 0 = Not at all Trouble relaxin = Not at all Being so restless that it is hard to sit still: 0 = Not at all Becoming easily annoyed or irritable: 0 = Not at all Feeling afraid as if something awful might happen: 0 = Not at all Total JORJE-7 score (0-4 normal; 5-9 mild; 10-14 moderate; 15-21 severe): 0 Source: Developed by Jessi Castro Kurt Kroenke and colleagues, with an educational can from [employer]. Review of Systems Narrative - Constitutional: Reports feeling more tired with age. - Psychiatric: Endorses symptoms of depression and stress. - Neurological: Reports recent difficulty finding words. - Eyes: Reports some floaters, which have not significantly increased. - Respiratory: Reports an intermittent, non-productive cough with a whooping sound for the past 2-3 weeks. - Musculoskeletal/Integumentary: Reports a painful lesion on the sole of his foot and intermittent heel pain that is worse upon waking in the morning. Physical exam (Primary Care) Vital Signs: Last Vital Signs Temp 98 F 08/31/25 11:18 Pulse 78 08/31/25 11:18 BP 134/63 08/31/25 11:18 Pulse Ox 94 08/31/25 11:18 Oxygen Delivery Method Room Air 08/31/25 11:18 BMI result Body Mass Index 29.7 GENERAL Well developed, Well nourished, in no apparent distress HEENT Head-Normocephalic Eyes- PERRLA, EOMI, Conjuctiva clear, lids WNL Ears- Canals clear, TMs WNL Mouth/Throat-No lesions, no erythema, no exudate Neck- Supple, No lymphadenopathy, thyroid WNL RESPIRATORY Normal I:E, Clear to auscultation CARDIOVASCULAR Regular, rate and rhythm, No murmurs or rubs MUSCULOSKELETAL left foot- small plantar wart on arch of foot left heel pain NEUROLOGICAL Gait normal PSYCHIATRIC Oriented to person, place and time Mood and affect depression in partial remission Appearance WNL Speech WNL Thought processes WNL Tobacco/Smoking Status: Tobacco use Status Tobacco use date assessed 08/31/25 08/30/25 18:04 Patient Tobacco Use Status Never used Tobacco 08/30/25 18:04 e-Cigarette/Vaping Use Never Used 08/30/25 18:04 PHQ-9: PHQ-9 Score PHQ-9: Total score 6 08/31/25 11:24 Depression Screening Interpretation: Positive Depression Screening Follow-up: In treatment and Follow-up Visit Requested Thrive Assessment: Date of Thrive Assessment Date Thrive assessed 08/31/25 08/30/25 18:04 Results Reviewed Results Reviewed: - Labs: Total cholesterol was 224 mg/dL and triglycerides were approximately 300 mg/dL. - One liver function test was slightly elevated. Coding Level of Care Code Established Pt Tele Est Pt Level 4 (74866) Patient Type Established Diagnoses Major depressive disorder, recurrent episode, in partial remission F33.41 Psychophysiological insomnia F51.04 Insomnia type: psychophysiologic Mixed hyperlipidemia E78.2 Hyperlipidemia type: mixed hyperlipidemia Elevated LFTs R79.89 Pain of left heel M79.672 Plantar wart of left foot B07.0 Cough R05.9 Time Spent (min) 30 Comment Time was spent on lab review, H&P, patient education and orders. Assessment & Plan Assessment & Plan (1) Major depressive disorder, recurrent episode, in partial remission: Code(s): F33.41 - Major depressive disorder, recurrent, in partial remission Category: Medical Plan: The patient continues on bupropion for depression and will receive a refill for trazodone for insomnia, which he finds effective for sleep maintenance despite some concern about word-finding difficulty. His mood improves with exercise, but he continues to experience significant stress from his home environment. A prior psychiatry referral was not pursued due to insurance issues, which the patient is actively working to resolve. (2) Insomnia: Code(s): G47.00 - Insomnia, unspecified Category: Medical Qualifiers: Insomnia type: psychophysiologic Qualified Code(s): F51.04 - Psychophysiologic insomnia Plan: The patient continues on bupropion for depression and will receive a refill for trazodone for insomnia, which he finds effective for sleep maintenance despite some concern about word-finding difficulty. His mood improves with exercise, but he continues to experience significant stress from his home environment. A prior psychiatry referral was not pursued due to insurance issues, which the patient is actively working to resolve. (3) Hyperlipidemia: Code(s): E78.5 - Hyperlipidemia, unspecified Category: Medical Qualifiers: Hyperlipidemia type: mixed hyperlipidemia Qualified Code(s): E78.2 - Mixed hyperlipidemia Plan: Recent labs revealed elevated total cholesterol of 224 and triglycerides of approximately 300. Management will begin with lifestyle modifications, including adoption of a heart-healthy or Mediterranean diet and continued exercise. The patient is considering a meal subscription service to facilitate these dietary changes. We will recheck cholesterol levels in a couple of months, and if they remain elevated, we will discuss initiating medication. Patient to follow up in 2 months or sooner if needed. (4) Elevated LFTs: Code(s): R79.89 - Other specified abnormal findings of blood chemistry Category: Medical Plan: Patient will abstain from alcohol. Will follow up in 2 months. (5) Pain of left heel: Code(s): M79.672 - Pain in left foot Category: Medical Plan: The patient reports chronic, intermittent heel pain that is worst upon waking, with a history of a puncture wound in that area 9-10 years ago. The differential diagnosis includes plantar fasciitis, which is most likely, or a retained foreign body. An order for a foot X-ray will be placed to evaluate for a foreign body or heel spur. The patient was advised to wait to have the X-ray performed until his insurance issues are resolved to avoid a large bill. (6) Plantar wart of left foot: Code(s): B07.0 - Plantar wart Category: Medical Plan: The patient has a lesion on the sole of his foot consistent with a plantar wart. Recommended treatment with tugx-udh-hqqqwre wart pads, with instructions to apply for 1-2 days, remove, file the skin, and reapply until resolved. If this treatment is not successful, a referral to podiatry for excision will be considered. (7) Cough: Code(s): R05.9 - Cough, unspecified Plan: The patient reports an intermittent cough for a few weeks. As the lung exam was clear, no acute intervention is planned at this time and the plan is to monitor symptoms. Patient to follow up as needed if symptoms persist or worsen. Plan I reviewed the patient's lab results, highlighting his elevated cholesterol of 224 and triglycerides of around 300, as well as a slightly elevated liver function test possibly related to past alcohol use. I recommended starting with dietary changes, such as a Mediterranean or heart-healthy diet, to manage the cholesterol and advised rechecking labs in a couple of months before considering medication. We discussed his foot complaints, including the lesion that I assessed as a plantar wart, and I provided instructions for xnoj-pxf-kdnneef treatment. For his chronic heel pain, I explained that it is most likely plantar fasciitis but that we should rule out a retained foreign body from his past injury with an X-ray. I advised him to delay the X-ray until he sorts out his insurance coverage to prevent incurring a large bill. I addressed his concerns about trazodone side effects, including eye floaters, reassuring him that small numbers are normal unless a sudden flood occurs. I will provide refills for his medications. We agreed that he would schedule a follow-up appointment after his insurance situation is resolved to proceed with further diagnostics and re-evaluation. Orders: Orders Lipid Panel Today E78.5 - Hyperlipidemia, unspecified Liver Panel Today R79.89 - Other specified abnormal findings of blood chemistry XR foot LT 2V Today M79.672 - Pain in left foot Medications: Refilled bupropion HCl XL 300 mg PO QAM 90 tabs 2RF trazodone 50 mg PO BEDTIME PRN 60 tabs 2RF sleep Patient Instructions: - Continue taking bupropion and trazodone as prescribed. A refill for your medications [facility]. - To help lower your cholesterol, adopt a heart-healthy or Mediterranean diet. Focus on eating more fish, chicken, fruits, vegetables, and whole grains, and less red meat and fried foods. - For the painful spot on the bottom of your foot, use an bulx-xqj-lmkjoqs wart pad. Leave it on for 1-2 days, then take it off and gently file the skin away before putting a new pad on. Keep doing this until it is gone. - Do not get the foot X-ray until after you have changed your insurance plan to avoid a large bill. - It is normal to see a few small floaters in your vision. However, if you ever see a sudden flood of floaters at once, you should seek medical attention. - Please work on sorting out your insurance situation. Once that is complete, call our office to schedule a follow-up appointment to recheck your cholesterol and get your foot X-ray.
[2025-08-31 11:18] VITALS: BP 134/63; PULSE 78; TEMP 36.6; O2SAT 94; BMI 29.7
--- OUTSIDE RECORDS SUMMARY | 2025-08-31 12:59 | XMS_ITS | Patient Health Record ---
Author Organization [facility] Address [address] [place] [address] Care Team Providers Care Payroll Manager Name Role Phone Jose Martin (DO NOT USE), Monie Primary Care Provi nikole Unavailable Aung Lazaro Jr Unavailable [phone] Allergies No Known Allergies Reason For Referral Referring Provider First Name [facility] Referring Provider Last Name Jose Martin ( DO NOT USE) Referred Organization [facility] Referred Provider Aung Lazaro Jr Referred Address [address],[place], [place],[address] Referred Provider Specialty Gastroentero logy General Notes Rachelle Edgar 2024 10:37:39 AM >requested a back dated referral since none on file for dos 01-11-[address] Lazaro. requested from [facility] [phone], Rachelle Edgar 01/20/2025 08:24:14 AM >, Rachelle Edgar 01/20/2025 08:24:16 AM > pt will call [facility] and find out which insurance is primary medicare or [facility], choose a pcp and obtain a back [...] Problem Status W/U Status Risk Notes Problem Rectal symptom (R19.8) Active confirmed Vital Signs Temperature 97.7 degrees Fahrenheit 01/11/2025 Blood pressure diastolic 01 mm Hg 01/11/2025 Height 71 in 01/11/2025 Blood pressure systolic 001 mm Hg 01/11/2025 Weight 220 lbs 01/11/2025 BMI 30.68 kg/m2 01/11/2025 Encounters Encounter Location Date Provider Diagnosis [facility] [address] [place] [id number] 01/11/2025 Aung Lazaro Jr Colon cancer screening Z12.11 and Rectal symptom R19.8 [facility] [address] [place] [id number] 01/27/2025 Aung Lazaro Jr [facility] [address] [place] [id number] 01/27/2025 Aung Lazaro Jr Assessments Encounter Date [...] Insured Coverage Start Date Coverage End Date [facility] [address] [place] [phone] [id number] RILEY SAENZ Self - patient is the insured 3 Medical (General) History Medical History History ICD Code Depression Surgical History Surgery Date(Month/Year) inguinal hernia repair R 1995
== END 2025-08-31 11:46 | disposition home or self-care (01) ==
LOC: HO.HMCHD 10:51
PROVIDERS: PCP Internal Medicine; Visit Provider Physician Assistant Medical
DX: F33.41 Major depressive disorder, recurrent, in partial remission (principal); F51.04 Psychophysiologic insomnia; E78.2 Mixed hyperlipidemia; R79.89 Other specified abnormal findings of blood chemistry; M79.672 Pain in left foot; B07.0 Plantar wart; R05.9 Cough, unspecified

== ENCOUNTER → 2025-08-31 10:50 | Outpatient (BNVA) | payer MEDICARE, SELFPAY | PROVIDERS: PCP Internal Medicine; Visit Provider Physician Assistant Medical | DX: F33.41 Major depressive disorder, recurrent, in partial remission (principal); F51.04 Psychophysiologic insomnia; E78.2 Mixed hyperlipidemia; R79.89 Other specified abnormal findings of blood chemistry; B07.0 Plantar wart; M79.672 Pain in left foot | CPT/HCPCS: 99212 ==